=== PATIENT | female | born 1935 | race Caucasian/White ===

== ENCOUNTER 2016-10-18 15:33 | Emergency (ER) | payer MEDICARE, BC, OTHER ==
[2016-10-18 16:56] VITALS: BP 159/71
--- NOTE | 2016-10-18 17:03 | UC ---
Ear Complaint HPI - HPI Summary HPI Summary: complaint of right ear irritation from getting a plastic sleeve from hearing aide in her ear and she couldn't get it out occurred this morning denies any pain in ear but she is concerned that ear wax may get onto her hearing aide - History of Current Complaint Stated Complaint: FO IN EAR Time Seen by Provider: 10/18/16 16:51 Hx Obtained From: Patient - Allergies/Home Medications Allergies/Adverse Reactions: Allergies Allergy/AdvReac Type Severity Reaction Status Date / Time NARCOTICS Allergy VERY NAUSEA Uncoded 11/22/14 12:10 PMH/Surg Hx/FS Hx/Imm Hx Previously Healthy: Yes Endocrine History: Dyslipidemia Cardiovascular History: Hypertension - Surgical History Surgical History: Yes Surgery Procedure, Year, and Place: T& A -as a child 1998- FUSION L3-4 LUMBAR. 1951 RHINOPLASTY 1998-Rt 2ND FINGER AMPUTEE. 1974 HYSTERECTOMY 1999 - TOTAL Rt HIP REPLACEMENT. 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 1989 - RECUREENT - CHONDROSARCOME - Lt KNEE LAURA CATARACTS. 1997- REPAIR Rt ROTATOR CUFF 2008- Rt VEIN STRIPPING. 2009- Lt TOTAL KNEE REPLACEMENT - Family History Known Family History: Positive: Cardiac Disease Negative: Hypertension, Diabetes - Social History Occupation: Retired Lives: With Family Alcohol Use: None Substance Use Type: None Smoking Status (MU): Never Smoked Tobacco Review of Systems Constitutional: Negative Skin: Negative Eyes: Negative ENT: Other - foreign objuct Respiratory: Negative Cardiovascular: Negative Gastrointestinal: Negative Genitourinary: Negative Motor: Negative Neurovascular: Negative Musculoskeletal: Negative Neurological: Negative Psychological: Negative All Other Systems Reviewed And Are Negative: Yes Physical Exam Triage Information Reviewed: Yes Appearance: No Pain Distress, Well-Nourished Vital Signs: Initial Vital Signs Temp 97.2 F 10/18/16 16:53 Pulse 52 10/18/16 16:53 Resp 18 10/18/16 16:53 BP 159/71 10/18/16 16:53 Pulse Ox 100 10/18/16 16:53 Vital Signs Reviewed: Yes Eyes: Positive: Conjunctiva Clear ENT: Positive: Pharynx normal, TMs normal Neck: Positive: No Lymphadenopathy Respiratory: Positive: Lungs clear, Normal breath sounds, No respiratory distress, No accessory muscle use Cardiovascular: Positive: RRR, No Murmur, Pulses Normal Musculoskeletal: Positive: No Edema Neurological: Positive: Alert Psychological Exam: Normal Skin Exam: Normal Ear Complaint Course/Dx - Course Course Of Treatment: upon exam - pt had removed foreign object from ear. TM clear some cerumen in right ear - Differential Dx/Diagnosis Differential Diagnosis/HQI/PQRI: Foreign Body Provider Diagnoses: right ear foriegn body Discharge - Discharge Plan Condition: Stable Disposition: HOME Patient Education Materials: How to Choose a Hearing Aid (ED) Referrals: Jeferson Steve MD [Primary Care Provider] - Additional Instructions: Please review your discharge instructions. If your symptoms do not improve please call your primary care provider or return to urgent care. Your blood pressure is elevated. Please contact your primary care provider within 1 -4 weeks for further evaluation
== END 2016-10-18 17:00 | disposition home or self-care (01) ==
LOC: UCEAST 15:33
DX: T16.1XXA Foreign body in right ear, initial encounter (principal); X58.XXXA Exposure to other specified factors, initial encounter; Y93.9 Activity, unspecified; Y92.9 Unspecified place or not applicable; Y99.9 Unspecified external cause status
CPT/HCPCS: 99211; G0463

== ENCOUNTER 2018-03-23 12:57 | Emergency (ER) | payer MEDICARE, BC ==
[2018-03-23 13:53] LABS: ABS Basophils 0 10^3/ul (0-0.2); ABS Eosinophils 0.1 10^3/ul (0-0.6); ABS Lymphocytes 1.5 10^3/ul (1.0-4.8); ABS Monocytes 0.9 10^3/ul (0-0.8); ABS Neutrophils 5.7 10^3/ul (1.5-7.7); ABS Nucleated RBC 0 10^3/ul; Eosinophil % 1.6 %; Hematocrit 37 % (35-47); Hemoglobin 12.1 g/dl (12.0-16.0); Lymphocyte % 18.1 %; Mean Corpuscular HGB Conc 33 g/dl (31-36); Mean Corpuscular Hemoglobin 29 pg (27-31); Mean Corpuscular Volume 88 fL (80-97); Mean Platelet Volume 8.6 fL (7.4-10.4); Nucleated Red Blood Cells % 0; Platelet Count 288 10^3/ul (150-450); Red Blood Count 4.21 10^6/ul (4.00-5.40); Red Cell Distribution Width 15 % (10.5-15); White Blood Count 8.3 10^3/ul (3.5-10.8)
[2018-03-23 14:01] LABS: Activated Partial Thrombo Time 34.8 seconds (26.0-36.3); INR 0.93 (0.77-1.02)
[2018-03-23 14:12] LABS: Albumin 4.1 g/dL (3.2-5.2); Albumin/Globulin Ratio 1.6 (1-3); BUN/Creatinine Ratio 20.2 (8-20); Calcium 9.3 mg/dL (8.6-10.3); EGFR Non-African American 56.9 (>60); Globulin 2.5 g/dL (2-4); Magnesium 1.9 mg/dL (1.9-2.7); Total Bilirubin 0.4 mg/dL (0.2-1.0); Total Protein 6.6 g/dL (6.4-8.9)
[2018-03-23 16:25] VITALS: BP 170/60
--- NOTE | 2018-03-23 16:30 | ED ---
HPI Chest Pain - HPI Summary HPI Summary: Patient is an 82-year-old female with a history of hypertension and a possible remote history of CHF based on her previous medications presenting to the ED several episodes over the past several weeks to months of intermittent stabbing chest pain which radiates to her jaw and feels tight. She states the last one was yesterday at approximate 4 PM. She endorses an extreme amount of stress recently which has made these episodes more frequent. She states she is here in the ED today as she would like a referral to one of our cardiologists, specifically Dr. Terry or Dr. Awan. She does not want to be a patient of [facility] anymore. She denies any chest pain currently or SOB. She states she has intermittent "blackouts." She endorses a 1-2 seconds blackout which has been occurring for several months to years where she is unable to see anything for this 1-2 seconds and spontaneously resolves. She states she does not get dizzy and has never fallen. She has had a workup at [facility] with a one-month Holter monitor which did not sampler pickup any abnormalities. She also states she had previously been on torsemide by her physician took her off due to her frequent overnight frequent micturition and bladder leakage. She has not followed up with them in quite some time. She is currently on amlodipine 5 mg, atenolol 25 and Hyzaar 100. Her blood pressure has been well controlled per patient. She denies any urinary symptoms, back pain, nausea, vomiting, fever, sweats, chills, or recent illness. She is a current patient of Dr. Char Gillette. - History of Current Complaint Chief Complaint: EDGeneral Time Seen by Provider: 03/23/18 13:16 Hx Obtained From: Patient Onset/Duration: Started Hours Ago Timing: Constant Initial Severity: Mild Current Severity: None Pain Intensity: 0 Pain Scale Used: 0-10 Numeric Chest Pain Location: Mid Sternal - radiating to the neck Chest Pain Radiates: No Aggravating Factor(s): Nothing Alleviating Factor(s): Nothing Associated Signs and Symptoms: Positive: Chest Pain, Anxiety, Recent Stress - Risk Factors Pulmonary Embolism Risk Factors: Negative TAD Risk Factors: Negative - Allergy/Home Medications Allergies/Adverse Reactions: Allergies Allergy/AdvReac Type Severity Reaction Status Date / Time NARCOTICS Allergy VERY NAUSEA Uncoded 03/23/18 14:42 PMH/Surg Hx/FS Hx/Imm Hx Previously Healthy: Yes Endocrine/Hematology History: Reports: Hx Thyroid Disease Denies: Hx Diabetes Cardiovascular History: Reports: Hx Hypertension Denies: Hx Pacemaker/ICD Respiratory History: Denies: Hx Asthma, Hx Chronic Obstructive Pulmonary Disease (COPD) GI History: Denies: Hx Ulcer Sensory History: Denies: Hx Hearing Aid Psychiatric History: Denies: Hx Panic Disorder - Surgical History Surgery Procedure, Year, and Place: T& A -as a child 1998- FUSION L3-4 LUMBAR. 1951 RHINOPLASTY 1998-Rt 2ND FINGER AMPUTEE. 1974 HYSTERECTOMY 1999 - TOTAL Rt HIP REPLACEMENT. 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 1989 - RECUREENT - CHONDROSARCOME - Lt KNEE 2002/2003 LAURA CATARACTS. 1997- REPAIR Rt ROTATOR CUFF 2008- Rt VEIN STRIPPING. 2009- Lt TOTAL KNEE REPLACEMENT - Immunization History Hx Pertussis Vaccination: No Immunizations Up to Date: Yes Infectious Disease History: No Infectious Disease History: Reports: Hx Hepatitis, Hx Shingles - 2 TIMES Denies: Hx Clostridium Difficile, Hx Human Immunodeficiency Virus (HIV), Hx of Known/Suspected MRSA, Hx Tuberculosis, Hx Known/Suspected VRE, Hx Known/ Suspected VRSA, History Other Infectious Disease, Traveled Outside the [place] in Last 30 Days - Family History Known Family History: Positive: Cardiac Disease Negative: Hypertension, Diabetes - Social History Occupation: Unemployed Lives: With Family Alcohol Use: None Hx Substance Use: No Substance Use Type: Reports: None Hx Tobacco Use: No Smoking Status (MU): Never Smoked Tobacco Review of Systems Constitutional: Negative Negative: Fever, Chills, Fatigue, Skin Diaphoresis Positive: Chest Pain. Negative: Palpitations Negative: Shortness Of Breath, Cough Negative: Abdominal Pain, Vomiting, Diarrhea, Nausea Negative: Arthralgia, Myalgia Skin: Negative Neurological: Negative Positive: Other All Other Systems Reviewed And Are Negative: Yes Physical Exam Triage Information Reviewed: Yes Vital Signs On Initial Exam: Initial Vitals Temp Pulse Resp BP Pulse Ox 97.9 F 57 16 152/66 93 03/23/18 13:08 03/23/18 13:08 03/23/18 13:08 03/23/18 13:08 03/23/18 13:08 Vital Signs Reviewed: Yes Appearance: Positive: Well-Appearing, Well-Nourished Skin: Positive: Warm, Skin Color Reflects Adequate Perfusion Head/Face: Positive: Normal Head/Face Inspection Eyes: Positive: EOMI, KANDICE, Conjunctiva Clear Neck: Positive: Supple, Nontender Respiratory/Lung Sounds: Positive: Clear to Auscultation, Breath Sounds Present Cardiovascular: Positive: RRR, Pulses are Symmetrical in both Upper and Lower Extremities, S1, S2. Negative: Leg Edema Left, Leg Edema Right Musculoskeletal: Positive: Normal, Strength/ROM Intact Neurological: Positive: Sensory/Motor Intact, Alert, Oriented to Person Place, Time, Speech Normal Psychiatric: Positive: Normal, Affect/Mood Appropriate AVPU Assessment: Alert Diagnostics - Vital Signs Vital Signs Temp Pulse Resp BP Pulse Ox 03/23/18 16:25 97.8 F 61 25 170/60 97 03/23/18 16:15 59 23 170/60 98 03/23/18 16:00 59 22 98 03/23/18 15:46 59 21 155/69 95 03/23/18 15:15 56 20 154/69 98 03/23/18 15:00 57 20 98 03/23/18 14:45 56 21 151/59 99 03/23/18 14:42 99 03/23/18 14:16 54 22 155/59 97 03/23/18 14:15 59 20 98 03/23/18 13:08 97.9 F 57 16 152/66 93 - Laboratory Lab Results: Lab Results 03/23/18 03/23/18 03/23/18 Range/Units 13:44 13:44 13:44 WBC 8.3 (3.5-10.8) 10^3/ul RBC 4.21 (4.00-5.40) 10^6/ul Hgb 12.1 (12.0-16.0) g/dl Hct 37 (35-47) % MCV 88 (80-97) fL MCH 29 (27-31) pg MCHC 33 (31-36) g/dl RDW 15 (10.5-15) % Plt Count 288 (150-450) 10^3/ul MPV 8.6 (7.4-10.4) fL Neut % (Auto) 69.3 % Lymph % (Auto) 18.1 % Hughes % (Auto) 10.4 % Eos % (Auto) 1.6 % Baso % (Auto) 0.6 % Absolute Neuts (auto) 5.7 (1.5-7.7) 10^3/ul Absolute Lymphs (auto) 1.5 (1.0-4.8) 10^3/ul Absolute Monos (auto) 0.9 H (0-0.8) 10^3/ul Absolute Eos (auto) 0.1 (0-0.6) 10^3/ul Absolute Basos (auto) 0 (0-0.2) 10^3/ul Absolute Nucleated RBC 0 10^3/ul Nucleated RBC % 0 INR (Anticoag Therapy) 0.93 (0.77-1.02) APTT 34.8 (26.0-36.3) seconds Sodium 138 (135-145) mmol/L Potassium 4.0 (3.5-5.0) mmol/L Chloride 104 (101-111) mmol/L Carbon Dioxide 28 (22-32) mmol/L Anion Gap 6 (2-11) mmol/L BUN 19 (6-24) mg/dL Creatinine 0.94 (0.51-0.95) mg/dL Est GFR ( Amer) 68.8 (>60) Est GFR (Non-Af Amer) 56.9 (>60) BUN/Creatinine Ratio 20.2 H (8-20) Glucose 92 (70-100) mg/dL Lactic Acid (0.5-2.0) mmol/L Calcium 9.3 (8.6-10.3) mg/dL Magnesium 1.9 (1.9-2.7) mg/dL Total Bilirubin 0.40 (0.2-1.0) mg/dL AST 17 (13-39) U/L ALT 14 (7-52) U/L Alkaline Phosphatase 49 (34-104) U/L Troponin I 0.01 (<0.04) ng/mL B-Natriuretic Peptide (<=100) pg/mL Total Protein 6.6 (6.4-8.9) g/dL Albumin 4.1 (3.2-5.2) g/dL Globulin 2.5 (2-4) g/dL Albumin/Globulin Ratio 1.6 (1-3) 03/23/18 03/23/18 Range/Units 13:44 13:44 WBC (3.5-10.8) 10^3/ul RBC (4.00-5.40) 10^6/ul Hgb (12.0-16.0) g/dl Hct (35-47) % MCV (80-97) fL MCH (27-31) pg MCHC (31-36) g/dl RDW (10.5-15) % Plt Count (150-450) 10^3/ul MPV (7.4-10.4) fL Neut % (Auto) % Lymph % (Auto) % Hughes % (Auto) % Eos % (Auto) % Baso % (Auto) % Absolute Neuts (auto) (1.5-7.7) 10^3/ul Absolute Lymphs (auto) (1.0-4.8) 10^3/ul Absolute Monos (auto) (0-0.8) 10^3/ul Absolute Eos (auto) (0-0.6) 10^3/ul Absolute Basos (auto) (0-0.2) 10^3/ul Absolute Nucleated RBC 10^3/ul Nucleated RBC % INR (Anticoag Therapy) (0.77-1.02) APTT (26.0-36.3) seconds Sodium (135-145) mmol/L Potassium (3.5-5.0) mmol/L Chloride (101-111) mmol/L Carbon Dioxide (22-32) mmol/L Anion Gap (2-11) mmol/L BUN (6-24) mg/dL Creatinine (0.51-0.95) mg/dL Est GFR ( Amer) (>60) Est GFR (Non-Af Amer) (>60) BUN/Creatinine Ratio (8-20) Glucose (70-100) mg/dL Lactic Acid 0.9 (0.5-2.0) mmol/L Calcium (8.6-10.3) mg/dL Magnesium (1.9-2.7) mg/dL Total Bilirubin (0.2-1.0) mg/dL AST (13-39) U/L ALT (7-52) U/L Alkaline Phosphatase (34-104) U/L Troponin I (<0.04) ng/mL B-Natriuretic Peptide 679 H (<=100) pg/mL Total Protein (6.4-8.9) g/dL Albumin (3.2-5.2) g/dL Globulin (2-4) g/dL Albumin/Globulin Ratio (1-3) Result Diagrams: 03/23/18 13:44 03/23/18 13:44 Lab Statement: Any lab studies that have been ordered have been reviewed, and results considered in the medical decision making process. Chest Pain Course/Dx - Course Course Of Treatment: Labs obtained including an EKG and chest x-ray. On chest x -ray there is no acute cardiopulmonary disease. EKG shows sinus rhythm with a probable left atrial enlargement and a right bundle branch block. Labs obtained which were all WNL except for an elevated BNP which could be at her baseline. We have no previous BNP on file. BNP today is noted to be at 679. Patient states she has never been diagnosed with CHF or other heart failure. She does however endorse previous prescriptions of torsemide, however states due to her frequent bladder leakage, she was taken off this medication. She does not wish to return to the [facility] pou[facility] at [place]. Discussed case with Dr. Helena Au. Dr. Au recommends 5 days 20mg Furosemide and close follow up with card this patient is stable with no other acute findings, I believe she is safe for discharge to home. I would like her to follow up with Dr. Emperatriz Terry next week. She understands if she develops any worsening or changing symptoms, to return to the ED. Much of this could be d/t the excess stress she has been feeling. She is dx with atypical PNA and elevated BNP. - Diagnoses Provider Diagnoses: Elevated brain natriuretic peptide (BNP) level, Stress, Atypical chest pain Discharge - Sign-Out/Discharge Documenting (check all that apply): Patient Departure - Discharge Plan Condition: Stable Disposition: HOME Prescriptions: Furosemide TAB* [Lasix TAB*] 20 mg PO DAILY #5 tab Referrals: Lynette Awan MD [Medical Doctor] - Wilber Terry MD [Medical Doctor] - Char Gillette MD [Primary Care Provider] - Additional Instructions: Please follow up with Dr. Terry or Dr. Awan Please call Sunday morning for an appt Lasix once daily x 5 days Do not take before bedtime If you develop worsening symptoms- return to the ED - Billing Disposition and Condition Condition: STABLE Disposition: Home
== END 2018-03-23 16:25 | disposition home or self-care (01) ==
LOC: ED 12:57
DX: R07.89 Other chest pain (principal); F43.9 Reaction to severe stress, unspecified; R79.89 Other specified abnormal findings of blood chemistry; Z96.641 Presence of right artificial hip joint; Z96.652 Presence of left artificial knee joint; Z88.5 Allergy status to narcotic agent
CPT/HCPCS: 36415; 71045; 80053; 83605; 83735; 83880; 84484; 85025; 85610; 85730; 93005; 99283; 99284